=== PATIENT | male | born 1950 | race Caucasian/White ===

== ENCOUNTER → 2019-05-30 | Outpatient (CLI) | payer OTHER ==
--- NOTE | 2019-06-02 11:53 | P ---
[facility] [place] [address] PROCEDURE REPORT Name: GABRIELA NEWTON [id number] Admission: 05/30/19 Attend Phys: Wood Moe MD Discharge: Date of : 48 Report #: [id number] THIS REPORT FOR: //name// CC: Smooth Baker DO Wood Moe BRIEF HISTORY: The patient is a 68-year-old male with a history of prior colonoscopy with 4 colon adenomas 3 years ago. He presents today for high risk screening colonoscopy. PREOPERATIVE DIAGNOSIS: High risk screening colonoscopy. POSTOPERATIVE DIAGNOSIS: Moderate left-sided diverticulosis coli with few scattered diverticula in proximal colon. MEDICATIONS: Deep sedation with propofol per Anesthesia. SPECIMEN: None. ESTIMATED BLOOD LOSS: None. PROCEDURE: Colonoscopy to cecum to terminal ileum. FINDINGS: Prior to propofol sedation, procedure of colonoscopy discussed with the patient as well as potential risks and its complications. He indicates he understands and desires to proceed. DESCRIPTION OF PROCEDURE: With the patient in left lateral decubitus position, digital examination was completed, which revealed no abnormalities. Subsequently, the Olympus video colonoscope was introduced in the rectum, advanced under direct vision to the cecum. Done with minimal difficulty. The cecum was identified by the ileocecal valve and the appendiceal orifice. I was able to visualize the distal segment of terminal ileum, which was inspected and noted to be unremarkable. At that point, the scope was slowly withdrawn and careful circumferential views obtained. Upon slow withdrawal of the scope, the prep was excellent. Mucosa was within normal limits, normal vascular pattern, normal light reflex. As we withdrew the scope, no neoplastic lesions were seen. No polyps were identified on this examination. There were few scattered diverticula in the proximal colon, but there was no endoscopic evidence of diverticulitis. The scope was withdrawn and no additional abnormalities were noted until the sigmoid colon was reached, at which point he was found to have moderately severe diverticular disease of the sigmoid colon without endoscopic evidence of diverticulitis. The scope was withdrawn in the rectum and no abnormalities were seen. Upon retroflexion in the rectum, no additional abnormalities were seen. Scope was withdrawn. The patient tolerated the procedure well. [facility] [address] [place] [address] PROCEDURE REPORT Name: GABRIELA NEWTON [facility] [id number] Admission: 05/30/19 Attend Phys: Wood Moe MD Discharge: Date of : 48 Report #: [id number] CONDITION OF THE PATIENT UPON DISCHARGE: Following procedure, the patient drowsy, aroused, conversant and will be discharged home when fully ambulatory. INSTRUCTIONS TO THE PATIENT AND FAMILY AT THE TIME OF DISCHARGE: No neoplastic lesions were seen. Suggest high fiber diet due to his diverticular disease. Since he had 4 adenomas on his last exam, we will have him return in 5 years for high risk screening. He will otherwise return to the care of Dr. Baker and return to see me as needed. Last colonoscopy was 3 years ago. Withdrawal time from cecum was 13 minutes 57 seconds. <ELECTRONICALLY SIGNED> By: Wood Moe MD 06/02/19 1153 [id number] Wood Moe MD /nt
== END | disposition home or self-care (01) ==
LOC: GI 07:20
DX: Z12.11 Encounter for screening for malignant neoplasm of colon (principal); Z86.010 Personal history of colon polyps; K57.30 Diverticulosis of large intestine without perforation or abscess without bleeding
CPT/HCPCS: 62110; 62900